=== PATIENT | male | born 1975 | race Two or more races ===

== ENCOUNTER 2018-03-07 09:10 | Emergency (ER) | payer OTHER ==
[~2018-03-07] VITALS: Ht 182.9 cm; Wt 108.9 kg
[2018-03-07 12:08] VITALS: BP 134/97
== END 2018-03-07 12:14 | disposition home or self-care (01) ==
LOC: ER 09:10
DX: S62.92XA Unspecified fracture of left hand, initial encounter for closed fracture (principal); S66.912A Strain of unspecified muscle, fascia and tendon at wrist and hand level, left hand, initial encounter; W10.9XXA Fall (on) (from) unspecified stairs and steps, initial encounter; Y93.89 Activity, other specified; Y99.8 Other external cause status; Y92.89 Other specified places as the place of occurrence of the external cause
CPT/HCPCS: 29125; 70450; 70486; 72125; 73110